=== PATIENT | male | born 1940 | race Caucasian/White ===

== ENCOUNTER 2016-08-22 11:21 | Emergency (ER) | payer OTHER ==
[~2016-08-22] VITALS: Ht 180.3 cm; Wt 82.7 kg
[2016-08-22 11:57] LABS: HEMATOCRIT 45.2 % (38.0-50.0); MCH 29.7 PG (29.0-34.0); MEAN PLAT.VOLUME 9.8 uM^3 (9.0-12.4); PLATELET COUNT 368 K/uL (156-360); RBC DIS.WIDTH-CV 13.7 % (11.8-14.6); RBC DIS.WIDTH-SD 44.3 % (39-53); RED BLOOD COUNT 5.02 M/uL (4.00-5.50); WHITE BLOOD COUNT 13.2 K/uL (4.1-10.2)
[2016-08-22 12:10] LABS: GLUCOSE 110 mg/dL (70-99)
[2016-08-22 12:12] LABS: TOTAL BILIRUBIN 0.4 mg/dL (0.0-1.0)
[2016-08-22 12:14] LABS: GFR ESTIMATE (CALCULATED) > 59 mL/min/
[2016-08-22 12:15] LABS: ANION GAP 3 MEQ/L (2-14)
[2016-08-22 12:44] LABS: SAMPLE HEMOLYSIS CHECK 0; SAMPLE ICTERIC CHECK 0; SAMPLE LIPEMIA CHECK 0; SODIUM 137 MEQ/L (136-147)
[2016-08-22 13:07] LABS: UREA NITROGEN (BUN) 13 mg/dL (9-23)
[2016-08-22 13:08] LABS: CHLORIDE 101 mEq/L (99-109); POTASSIUM 3.5 mEq/L (3.7-5.4)
[2016-08-22 13:09] LABS: ALKALINE PHOSPHATASE 84 IU/L (3-129)
[2016-08-22] MEDS ORDERED: IMODIUM MS REL1 EACH PO (13:48)
[2016-08-22] MEDS ORDERED: BENTYL20 MG PO (13:48)
[2016-08-22] MEDS ORDERED: ZOFRAN ODT4 MG PO (13:48)
[2016-08-22] MEDS ORDERED: PLAVIX75 MG PO (13:55)
[2016-08-22] MEDS ORDERED: LISINOPRIL-HCT1 EAC3 PO ×2 (13:56→13:57)
[2016-08-22] MEDS ORDERED: CARVEDILOL12.5 MG PO (13:58)
[2016-08-22] MEDS ORDERED: GLIMEPIRIDE4 MG PO (13:58)
[2016-08-22 14:45] VITALS: BP 133/71
== END 2016-08-22 14:46 | disposition home or self-care (01) ==
LOC: EME 11:21
PROVIDERS: Emergency Medicine
DX: R10.9 Unspecified abdominal pain (principal); R19.7 Diarrhea, unspecified; E87.6 Hypokalemia; R11.0 Nausea; E11.9 Type 2 diabetes mellitus without complications; Z79.02 Long term (current) use of antithrombotics/antiplatelets; Z87.891 Personal history of nicotine dependence
CPT/HCPCS: 80053; 81003; 83630; 85027; 87493; 99281; 99285; J2405; J7030